=== PATIENT | male | born 1965 | race Caucasian/White ===

== ENCOUNTER 2020-01-23 08:54 | Outpatient (CLI) | payer OTHER ==
--- NOTE | 2020-01-23 09:48 | XRAY Report ---
PROCEDURE: Lumbar Spine 2 View INDICATIONS: BILAT HIP PAIN,L SACRAL PAIN TECHNIQUE: 2 views of the lumbar spine were acquired. COMPARISON: None. FINDINGS: Bones: 5 [id number]-ociovar vertebrae are present. There is minimal retrolisthesis of L3 on L4 and L4 on L5. Degenerative endplate changes and bilateral facet arthrosis at L3-4 through L5-S1 levels are s een. No vertebral body compression fractures. No suspicious bony lesions. Soft tissues: Overlying bowel gas pattern is normal. No suspicious soft tissue calcifications. IMPRESSION: Mild degenerative disc disease and bilateral facet arthrosis at L3-4 through L5-S1 level s. Minimal retrolisthesis at L3-4 and L4-5 levels. No acute compression fracture. Reviewed by: Manuel Mcgill MD on 01/23/2020 9:47 AM PDT Approved by: Manuel Mcgill MD on 01/23/2020 9:47 AM PDT Station ID: [id number]
--- NOTE | 2020-01-23 09:49 | XRAY Report ---
PROCEDURE: Hips 2V BILAT INDICATIONS: BILAT HIP PAIN,L SACRAL PAIN TECHNIQUE: 3 views of the hip were acquired. COMPARISON: None FINDINGS: Bones: No fractures or dislocations. Mild symmetric appearing bilateral hip joint osteophytic cook es are seen with superior joint space narrowing and subchondral sclerosis. No evidence of avascular n ecrosis of femoral head. No suspicious bony lesions. The visualized pelvic ring appears intact. Soft tissues: No suspicious soft tissue calcifications or masses. IMPRESSION: Mild symmetric appearing bilateral hip joint osteoarthritis. Reviewed by: Manuel Mcgill MD on 01/23/2020 9:47 AM PDT Approved by: Manuel Mcgill MD on 01/23/2020 9:47 AM PDT Station ID: [id number]
== END 2020-01-23 08:55 | disposition home or self-care (01) ==
LOC: DI 08:54
PROVIDERS: ATTEND Internal Medicine
DX: M51.36 Other intervertebral disc degeneration, lumbar region (principal); M16.0 Bilateral primary osteoarthritis of hip
CPT/HCPCS: 72100; 73521